=== PATIENT | female | born 1985 | race Caucasian/White ===

== ENCOUNTER 2017-09-08 20:13 | Emergency (ER) | payer OTHER ==
[~2017-09-08] VITALS: Ht 157.5 cm; Wt 54.4 kg
[~2017-09-08 20:13] MED LIST: ORPH100T PO
[2017-09-09] MEDS ORDERED: ZOFRAN ODT4 MG PO (01:21)
[2017-09-09] MEDS ORDERED: RANITIDINE HCL300 MG PO (01:21)
== END 2017-09-09 01:39 | disposition home or self-care (01) ==
LOC: ER 20:13
DX: K52.9 Noninfective gastroenteritis and colitis, unspecified (principal)